=== PATIENT | male | born 1995 | race African-American/Black ===

== ENCOUNTER 2021-09-28 05:43 | Emergency (ER) | payer MEDICAID, SELFPAY ==
[2021-09-28 05:47] VITALS: BP 143/82; PULSE 56; RESP 16; TEMP 36.6; O2SAT 99
--- NOTE | 2021-09-28 05:55 | ED.GENADUL_ITS ---
Discharge Plan Disposition Patient Disposition: HOME Condition: Good Discharge Details Clinical Impression: Pain due to dental caries Primary Care Provider: Unknown,Unknown ED Provider: Porfirio Rodriguez Home Meds and New Rx's Prescriptions: New penicillin V potassium 500 mg tablet 500 mg PO QID 10 Days Qty: 40 0RF Discharge Instructions Instructions: Dental Caries (ED) Additional Instructions: the block we administered should help improve your pain. Please take 800 mg of ibuprofen every 6 hours and 1000 mg of Tylenol every 6 hours to help with the inflammation and pain. These are the maximum doses. Please take the antibiotic as directed to help with the infection in your tooth. Please contact the dentist for prompt follow-up and evaluation for tooth removal. If you notice any worsening of your symptoms, or any new symptoms such as difficulty swallowing, difficulty breathing, vomiting, diarrhea, fever, chills, shortness of breath, chest pain, numbness, weakness, or fainting , please return immediately to the emergency department for reevaluation. Please follow up with your primary care provider as soon as possible for reassessment and reevaluation. As always, it was a pleasure participating in your medical care today. Medical Decision Making This is a pleasant 26-year-old male who presents for left lower posterior dental pain. Patient has known dental caries in his wisdom teeth and is scheduled to get them removed in the next month. Unfortunately he has had increased pain over the last 24 to 48 hours. He has been taking Tylenol and Motrin without improvement. He denies difficulty swallowing or drinking. No trauma to the area. No fever or chills. No other complaints at this time. Physical exam demonstrates a dental carry in the left posterior inferior wisdom tooth. Patient consented for dental block. Dental block was performed. Patient will be given a small bottle of penicillin here with a prescription for home. Patient will follow-up closely with dentist. Recommend continued NSAIDs. I have extensively reviewed the treatment plan and discharge instructions with the patient. I have addressed all patient concerns at this time. The patient was made aware of what symptoms to monitor for that would warrant a return to the emergency department. Discussed the plan with the patient, they demonstrate verbal understanding and agreement with our assessment and plan at this time. The documentation in this chart was dictated using [email or web address] dictation software. Please excuse any dictation errors. HPI General Date/Time Provider Initiated Documentation: 09/28/21 05:44 . HPI Narrative: This is a pleasant 26-year-old male who presents for left lower posterior dental pain. Patient has known dental caries in his wisdom teeth and is scheduled to get them removed in the next month. Unfortunately he has had increased pain over the last 24 to 48 hours. He has been taking Tylenol and Motrin without improvement. He denies difficulty swallowing or drinking. No trauma to the area. No fever or chills. No other complaints at this time. Related Data Home Medications Medication Instructions Recorded Confirmed penicillin V potassium 500 mg 500 mg PO QID 10 days #40 tabs 09/28/21 tablet Previous Rx's Medication Instructions Recorded penicillin V potassium 500 mg 500 mg PO QID 10 days #40 tabs 09/28/21 tablet Allergies Allergy/AdvReac Type Severity Reaction Status Date / Time fluoxetine Allergy Severe Other (See Unverified 09/28/21 05:50 Comment) General Stated Complaint: DentalOral NIRAV: 5 Review of Systems All systems reviewed & are unremarkable except as noted in HPI and below PFSH All Active Problems Acute nephritis (Acute 09/03/15) Chronic low back pain (Chronic) DDD (degenerative disc disease) (Chronic) Pain due to dental caries (Acute) Social History Smoking/Tobacco Use Status: Current-Occasional Tobacco Type: cigarettes Smoking risk assessment performed?: Yes Alcohol Intake: never Drug use: Never Substance use type: does not use Do you feel safe at home: Yes Do you feel safe in your relationship?: Yes Exam Narrative Exam Narrative: 1.Const: Well-nourished, Well-developed, appearing stated age 2.Eyes: PERRL, no conjunctival injection, and symmetrical lids. 3.ENT: Atraumatic external nose and ears. Moist MM. Neck: Symmetric, trachea midline, No thyromegaly. Left lower posterior wisdom tooth demonstrates notable cavity. No evidence of periapical abscess. No swelling or edema. No evidence of Ludewig's angina. No signs of airway compromise. 4.CVS: +S1/S2, No murmurs or gallops. Peripheral pulses 2+ and equal in all extremities. Brisk capillary refill in all extremities. 5.RESP: Unlabored respiratory effort. Clear to auscultation bilaterally. No wheezes rales or rhonchi 6.GI: Soft, Nontender/Nondistended, No hepatosplenomegaly. No guarding or rebound. 7.MSK: Normocephalic/Atraumatic, Extremities w/o deformity or ttp No cyanosis or clubbing, Normal movement of all extremities 8.Skin: Warm, Dry. No rashes or lesions. 9.Neuro: regional trainer II-XII grossly intact. Sensation grossly intact, no focal neurologic deficits. 10.Psych: (AAO) x3. Appropriate mood and affect Course Vital Signs Vital signs: Vital Signs Temperature 36.6 C 09/28/21 05:47 Pulse 56 L 09/28/21 05:47 Respiratory Rate 16 09/28/21 05:47 Blood Pressure 143/82 H 09/28/21 05:47 Pulse Oximetry 99 09/28/21 05:47 Temperature 36.6 C 09/28/21 05:47 Temperature Source Oral 09/28/21 05:47 Pulse 56 L 09/28/21 05:47 Respiratory Rate 16 09/28/21 05:47 Respiratory Effort Non-Labored 09/28/21 05:52 Blood Pressure 143/82 H 09/28/21 05:47 Pulse Oximetry 99 09/28/21 05:47 Pain Level 9 09/28/21 05:47 Procedures Nerve Block Nerve Block 1: Time out performed: Yes Local Anesthetic: Bupivicaine 0.25% Amount of anesthesia used (mL): 5 Side: left Intraoral Nerve Block: inferior alveolar Procedure Successful: Yes Patient Tolerated Procedure: well Complications: none
[2021-09-28] MEDS: Penicillin V POTASSIUM 500 MG TAB, 4 TABS/BTL PO (06:00)
== END 2021-09-28 06:03 | disposition home or self-care (01) ==
PROVIDERS: Emergency Provider Student in an Organized Health Care Education/Training Program
DX: K08.89 Other specified disorders of teeth and supporting structures (principal); K02.9 Dental caries, unspecified
CPT/HCPCS: 64400

== ENCOUNTER 2022-02-03 12:23 | Emergency (ER) | payer MEDICAID, SELFPAY ==
[2022-02-03 12:30] VITALS: BP 154/76; PULSE 86; RESP 16; TEMP 37.2; O2SAT 97
--- NOTE | 2022-02-03 13:27 | ED.GENADUL_ITS ---
Discharge Plan Disposition Patient Disposition: HOME Condition: Stable Discharge Details Clinical Impression: Pain, dental Primary Care Provider: None,None ED Provider: Gee Mendoza Home Meds and New Rx's Prescriptions: New naproxen [Naprosyn] 500 mg tablet 500 mg PO BID Qty: 20 0RF amoxicillin 875 mg tablet 875 mg PO BID Qty: 20 0RF Discharge Instructions Instructions: Toothache (ED) Additional Instructions: Amoxicillin and Naprosyn as directed. Salt water gargles, swish and spit as tolerated. Cool and/or warm compresses every 2 hours for 20 minutes. Please watch for new or worsening symptoms and return to the ER for any concerns. Lastly, follow-up with your dentist as already scheduled on Tuesday Medical Decision Making This is a 26-year-old male, current smoker, reports right upper dental pain and facial swelling that began yesterday, no trauma. Patient reports he contacted his dentist who recommended going to the ER for antibiotics and pain control, he is scheduled to see his dentist on Tuesday. Clinically he appears well, nontoxic, afebrile, airway is patent, no trismus, managing secretions without difficulty. Will initiate naproxen and amoxicillin therapy. Standard discharge and return precautions were provided. Patient understands, is agreeable to this plan, and has no additional questions or concerns upon discharge. This documentation was generated using [employer] dictation system, please disregard any oddities of phrase or misspellings. Medical Records Medical records reviewed: Yes I reviewed the patient's medical records. HPI General Mode of arrival: ambulatory . Date/Time Provider Initiated Documentation: 02/03/22 13:06 . Limitations to Documentation: no limitations . Information obtained by: patient . History of Present Illness 26 year old M presents to the emergency department with the chief complaint of R upper dental pain, described as moderate, with intensity rated at 5. Quality is described as aching, and is localized to the face and mouth. Patient reports no radiation. Patient started experiencing this day(s) (1) and it has been constant. No relieving factors improve symptom(s), No exacerbating factors reported . Patient notes no other symptoms.. Patient did receive the following treatments prior to arrival, none Related Data Home Medications Medication Instructions Recorded Confirmed amoxicillin 875 mg tablet 875 mg PO BID #20 tabs 09/28/22 naproxen 500 mg tablet (Naprosyn) 500 mg PO BID #20 tabs 02/03/22 Previous Rx's Medication Instructions Recorded amoxicillin 875 mg tablet 875 mg PO BID #20 tabs 02/03/22 naproxen 500 mg tablet (Naprosyn) 500 mg PO BID #20 tabs 02/03/22 Allergies Allergy/AdvReac Type Severity Reaction Status Date / Time fluoxetine Allergy Severe Other (See Unverified 09/28/21 05:50 Comment) General Stated Complaint: DentalOral NIRAV: 4 Review of Systems Constitutional Constitutional: Denies fever(s) ENT Ears, Nose, Mouth, and Throat: Denies otalgia Cardiovascular Cardiovascular: Denies chest pain Integumentary/Breasts Skin/Breast: Denies erythema PFSH All Active Problems Acute nephritis (Acute 09/03/15) Chronic low back pain (Chronic) DDD (degenerative disc disease) (Chronic) Pain, dental (Acute) Social History Smoking/Tobacco Use Status: Current-Occasional Tobacco Type: cigarettes Smoking risk assessment performed?: Yes Alcohol Intake: never Drug use: Never Substance use type: does not use Do you feel safe at home: Yes Do you feel safe in your relationship?: Yes Exam Const General: cooperative, healthy appearing, comfortable and no acute distress Orientation: alert and awake HENMT Head: normal to inspection, normocephalic and atraumatic Ears: external ears normal, TM's normal bilaterally and EAC's normal General nose exam: external nose normal Face images: 1. Mild swelling and tenderness, no erythema, warmth, induration. Mouth: moist mucous membranes Teeth image: 1. Diffuse mild discomfort to palpation. There is no obvious swelling, discharge or pointing abscess. No trismus. Airway is patent. Throat: posterior oropharynx normal Eyes Conjunctivae: conjunctivae normal Neck Neck: normal visual inspection, full ROM, no meningeal signs, trachea midline and supple Resp Effort & Inspection: normal respiratory effort and able to speak in complete sentences Skin General skin exam: no rashes or lesions noted Neuro General: patient alert, patient awake, moves all extremities and no focal motor deficits Sensory Exam: no sensory deficits noted Psych Appearance: grossly normal Mental Status: mental status grossly normal Course Vital Signs Vital signs: Vital Signs Temperature 37.2 C 02/03/22 12:30 Pulse 86 02/03/22 12:30 Respiratory Rate 16 02/03/22 12:30 Blood Pressure 154/76 H 02/03/22 12:30 Pulse Oximetry 97 02/03/22 12:30 Temperature 37.2 C 02/03/22 12:30 Temperature Source Oral 02/03/22 12:30 Pulse 86 02/03/22 12:30 Respiratory Rate 16 02/03/22 12:30 Respiratory Effort Non-Labored 02/03/22 12:33 Blood Pressure 154/76 H 02/03/22 12:30 Blood Pressure Position Sitting 02/03/22 12:30 Pulse Oximetry 97 02/03/22 12:30 Oxygen Delivery Method Room Air 02/03/22 12:30 Oxygen Flow Rate 0 02/03/22 12:30 Pain Level 8 02/03/22 12:30
== END 2022-02-03 13:37 | disposition home or self-care (01) ==
PROVIDERS: Emergency Provider Physician Assistant
DX: K08.89 Other specified disorders of teeth and supporting structures (principal); F17.210 Nicotine dependence, cigarettes, uncomplicated; R22.0 Localized swelling, mass and lump, head
CPT/HCPCS: 99283; 99284

== ENCOUNTER 2022-06-12 23:00 | Emergency (ER) | payer MEDICAID, SELFPAY ==
[2022-06-12 23:13] VITALS: BP 138/79; PULSE 77; RESP 16; TEMP 37.2; O2SAT 95
--- NOTE | 2022-06-12 23:30 | DI.RAD_ITS ---
Exam(s) XR LUMBAR SPINE COMPLETE EXAM: XR LUMBAR SPINE COMPLETE CLINICAL HISTORY: midline L4 pain. TECHNIQUE: 2D digital imaging was performed of the lumbar spine. Five images were obtained. AP, la teral, right oblique, left oblique and L5-S1 spot views were obtained. COMPARISON: CR LUMBAR SPINE COMPLETE from 10/11/2010 FINDINGS: BONES: No fracture or destructive lesion. Vertebral bodies are unremarkable. No facet hypertrophy ambrosio ntified. DISKS: Intervertebral disc spaces are maintained. ALIGNMENT: There is straightening of the normal lordosis. No spondylolysis or spondylolisthesis. SOFT TISSUE: Normal. IMPRESSION: Unremarkable radiographs of the lumbar spine. DATA REPOSITORY: RADIATION DOSE DELIVERED:
--- NOTE | 2022-06-12 23:33 | ED.GENADUL_ITS ---
Discharge Plan Disposition Patient Disposition: Home Condition: Good Discharge Details Clinical Impression: Chronic low back pain Primary Care Provider: Maureen,Local ED Provider: Porfirio Rodriguez Home Meds and New Rx's Prescriptions: New cyclobenzaprine 10 mg tablet 10 mg PO TID Qty: 14 0RF lidocaine [Lidoderm] 5 % adhesive patch,medicated 1 patch Topical Q24H Qty: 15 0RF prednisone 50 mg tablet 50 mg PO DAILY Qty: 5 0RF No Action naproxen [Naprosyn] 500 mg tablet 500 mg PO BID Qty: 20 0RF Discharge Instructions Instructions: Low Back Strain (ED) Additional Instructions: At this time your signs and symptoms are clinically consistent with a back sprain. This can cause significant pain and take a fair bit of time to heal. I expect 1 to 2 months for potential resolution. In the meantime do not lift anything greater than 5 pounds for the next 2 weeks. Avoid any significant vigorous physical activity. Perform easy gentle regular activities at home without any significant bending or lifting. Please take the steroids as direct ed. You have been given a prescription for Lidoderm patch. If your insurance does not cover this you can get [id number] Lidoderm patches at 4% which are almost just as effective. Please take the Flexeril as directed but do not take it when driving or operating any vehicles or heavy machinery, swimming, taking long baths, or operating firearms. Please use a heating pad as often as possible on your back. Perform daily gentle stretches on your back. Please continue to take the Tylenol and Motrin. You can take 1000 mg of Tylenol every 6 hours and 600 mg of ibuprofen every 6 hours. If you notice any worsening of your symptoms, or any new symptoms such as vomiting, diarrhea, fever, chills, shortness of breath, chest pain, numbness or tingling in your groin or legs, weakness in your legs, loss of control for your bowels or bladder, or fainting , please return immediately to the emergency department for reevaluation. Please follow up with your primary care provider as soon as possible for reassessment and reevaluation. As always, it was a pleasure participating in your medical care today. Medical Decision Making 26-year-old male presents today for evaluation of back pain. Patient has a history of 2 herniated disc, he had an MRI 11 years ago which showed that. He has suffered from chronic back pain since then. About 1 week ago he noticed some achiness in his lower back, which is continued over the last week. He has been taking naproxen but this has not improved his pain. He denies any heavy lifting, trauma, falls or other complaints. Pain worsens with movement and bending. It is associated with intermittent tingling down his left lateral and posterior leg, but only when he is standing for extended periods of time. He normally works at [employer], but has not for the past week. Patient denies any saddle anesthesia, numbness or tingling in the groin, change in sensation when wiping. Patient denies any change in sensation during sexual intercourse, difficulty achieving or maintaining an erection or ejaculation, bowel or bladder incontinence, leakage, or retention. Patient denies any weakness in the lower extremities, atypical falls or imbalance. Physical exam demonstrates well-appearing male, patient does have mild midline tenderness at around L4. But he also has a notable left-sided paraspinal spasm. Signs and symptoms demonstrate no concerning symptomatology for cauda equina syndrome. No saddle anesthesia. Intact strength, good dorsiflexion of the great toe. No clinical history of bowel or bladder incontinence. I suspect this is worsening of his chronic herniated disks and lumbar go secondary to this with muscle spasm. Will give Toradol, steroids, NSAIDs and Lidoderm patch. Will monitor closely and reassess. 12:52 AM On reassessment patient is feeling much better. He continues to show no signs or symptoms concerning for cauda equina syndrome. X-ray negative for acute process. Patient stable for discharge. Medication sent to the patient's pharmacy. Symptoms consistent with muscle spasm of the back. I have extensively reviewed the treatment plan and discharge instructions with the patient. I have addressed all patient concerns at this time. The patient was made aware of what symptoms to monitor for that would warrant a return to the emergency department. Discussed the plan with the patient, they demonstrate verbal understanding and agreement with our assessment and plan at this time. The documentation in this chart was dictated using [employer] dictation software. Please excuse any dictation errors. FINDINGS: Bones/joints: Normal. No acute fracture. Normal alignment. Straightening of lordosis. Soft tissues: Unremarkable. IMPRESSION: 1. No acute fracture or subluxation. 2. Straightening of lordosis. Thank you for allowing us to participate in the care of your patient. Dictated and Authenticated by: Júnior Meadows DO 06/13/2022 12:44 AM Eastern Time ([place] & [place]) HPI General Date/Time Provider Initiated Documentation: 06/12/22 23:08 . HPI Narrative: 26-year-old male presents today for evaluation of back pain. Patient has a history of 2 herniated disc, he had an MRI 11 years ago which showed that. He has suffered from chronic back pain since then. About 1 week ago he noticed some achiness in his lower back, which is continued over the last week. He has been taking naproxen but this has not improved his pain. He denies any heavy lifting, trauma, falls or other complaints. Pain worsens with movement and bending. It is associated with intermittent tingling down his left lateral and posterior leg, but only when he is standing for extended periods of time. He normally works at [employer], but has not for the past week. Patient denies any saddle anesthesia, numbness or tingling in the groin, change in sensation when wiping. Patient denies any change in sensation during sexual intercourse, difficulty achieving or maintaining an erection or ejaculation, bowel or bladder incontinence, leakage, or retention. Patient denies any weakness in the lower extremities, atypical falls or imbalance. Related Data Home Medications Medication Instructions Recorded Confirmed naproxen 500 mg tablet (Naprosyn) 500 mg PO BID #20 tabs 02/03/22 06/12/22 cyclobenzaprine 10 mg tablet 10 mg PO TID #14 tabs 06/13/22 lidocaine 5 % topical patch 1 patch topical Q24H #15 ea 06/13/22 (Lidoderm) prednisone 50 mg tablet 50 mg PO DAILY #5 tabs 06/13/22 Previous Rx's Medication Instructions Recorded naproxen 500 mg tablet (Naprosyn) 500 mg PO BID #20 tabs 02/03/22 cyclobenzaprine 10 mg tablet 10 mg PO TID #14 tabs 06/13/22 lidocaine 5 % topical patch 1 patch topical Q24H #15 ea 06/13/22 (Lidoderm) prednisone 50 mg tablet 50 mg PO DAILY #5 tabs 06/13/22 Allergies Allergy/AdvReac Type Severity Reaction Status Date / Time fluoxetine Allergy Severe Other (See Unverified 06/12/22 23:20 Comment) General Stated Complaint: Nk/Back Pain NIRAV: 4 Review of Systems All systems reviewed & are unremarkable except as noted in HPI and below PFSH All Active Problems (Updated 06/13/22 @ 00:21 by Porfirio Rodriguez DO) Acute nephritis (Acute 09/03/15) Chronic low back pain (Chronic) DDD (degenerative disc disease) (Chronic) Social History Smoking/Tobacco Use Status: Current-Occasional Tobacco Type: cigarettes Smoking risk assessment performed?: Yes Alcohol Intake: never Drug use: Occasionally Substance use type: former substance user Do you feel safe at home: Yes Do you feel safe in your relationship?: Yes Exam Narrative Exam Narrative: 1.Const: Well-nourished, Well-developed, appearing stated age 2.Eyes: PERRL, no conjunctival injection, and symmetrical lids. 3.ENT: Atraumatic external nose and ears. Moist MM. Neck: Symmetric, trachea midline, No thyromegaly. 4.CVS: +S1/S2, No murmurs or gallops. Peripheral pulses 2+ and equal in all extremities. Brisk capillary refill in all extremities. 5.RESP: Unlabored respiratory effort. Clear to auscultation bilaterally. No wheezes rales or rhonchi 6.GI: Soft, Nontender/Nondistended, No hepatosplenomegaly. No guarding or rebound. 7.MSK: Normocephalic/Atraumatic, Extremities w/o deformity or ttp No cyanosis or clubbing, Normal movement of all extremities No midline tenderness to palpation over the CTS spine. Patient does have mild midline tenderness over L4. Mild to moderate left-sided paraspinal tenderness in that same region. Normal ROM in flexion, extension, side bend, and rotation. Patient has +5 out of 5 strength in the lower extremities in dorsiflexion and plantarflexion, knee flexion and extension, hip flexion and extension. Normal strength for dorsiflexion and plantar flexion of the great toe bilaterally. There is +2 over 2 dorsalis pedis pulses bilaterally. There is normal sensation to the skin with light touch at the foot, knee, and hip. Normal saddle sensation. Good sensation over the deep sural nerve area bilaterally. Rectal exam demonstrates good rectal tone and perirectal sensation reflexes are +2 over 4 in the patellar reflex bilaterally. +5 out of 5 strength in the medial, ulnar, radial nerve distribution bilaterally in the hands as well as intact light touch sensation to these dermatomes on the hands 8.Skin: Warm, Dry. No rashes or lesions. 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 Sensation grossly intact, no focal neurologic deficits. 10.Psych: (AAO) x3. Appropriate mood and affect Course Vital Signs Vital signs: Vital Signs Temperature 37.2 C 06/12/22 23:13 Pulse 77 06/12/22 23:13 Respiratory Rate 16 06/12/22 23:13 Blood Pressure 138/79 06/12/22 23:13 Pulse Oximetry 95 06/12/22 23:13 Temperature 37.2 C 06/12/22 23:13 Pulse 77 06/12/22 23:13 Respiratory Rate 16 06/12/22 23:13 Respiratory Effort 06/12/22 23:13 Blood Pressure 138/79 06/12/22 23:13 Blood Pressure Position Supine 06/12/22 23:13 Pulse Oximetry 95 06/12/22 23:13 Oxygen Delivery Method Room Air 06/12/22 23:13 Oxygen Flow Rate 0 06/12/22 23:13 Pain Level 8 06/12/22 23:13
[2022-06-12] MEDS: predniSONE 20 MG TAB 60 MG PO (23:40)
[2022-06-12] MEDS: Acetaminophen 500 MG TAB 1000 MG PO (23:40)
[2022-06-12] MEDS: Ketorolac 30 MG/ML VIAL IM (23:41)
[2022-06-13] MEDS: Lidocaine 5% Patch 1 PATCH TP (00:18)
--- NOTE | 2022-06-13 00:45 | DI.VRAD_ITS ---
PROCEDURE INFORMATION: Exam: XR Lumbosacral Spine Exam date and time: 06/13/2022 12:10 AM Age: 26 years old Clinical indication: Other: Midline l4 pain TECHNIQUE: Imaging protocol: Radiologic exam of the lumbosacral spine. Views: 4 or 5 views. COMPARISON: No relevant prior studies available. FINDINGS: Bones/joints: Normal. No acute fracture. Normal alignment. Straightening of lordosis. Soft tissues: Unremarkable. IMPRESSION: 1. No acute fracture or subluxation. 2. Straightening of lordosis. Dictated and Authenticated by: Júnior Meadows MD. Ordering:CORY Monroy MD
[2022-06-13] MEDS: Cyclobenzaprine 10 MG TAB, 3 TABS/BTL PO (00:52)
[2022-06-13 00:54] VITALS: BP 134/64; PULSE 64; RESP 18; O2SAT 94
[2022-06-13 01:00] VITALS: BP 134/64; PULSE 64; RESP 18; TEMP 37.2; O2SAT 94
== END 2022-06-13 00:59 | disposition home or self-care (01) ==
PROVIDERS: Emergency Provider Student in an Organized Health Care Education/Training Program
DX: G89.29 Other chronic pain (principal); M54.50 Low back pain, unspecified
CPT/HCPCS: 96372; 99284; 72110; J1885; J7512

== ENCOUNTER 2022-07-27 20:27 | Outpatient (REF) | payer MEDICAID, SELFPAY ==
[2022-07-27 21:03] LABS: ALT 44 U/L (16-63); AST 20 U/L (15-37); Albumin 4.3 g/dL (3.4-5.0); Alkaline Phosphatase 88 U/L (46-116); Anion Gap 7.4 mmol/L (3-11); BUN 11 mg/dL (7-18); Bilirubin, Total 0.3 mg/dL (0.2-1.0); CO2 27.6 mmol/L (21.0-32.0); CREATININE 1.1 mg/dL (0.70-1.30); Calcium 9.7 mg/dL (8.5-10.1); Chloride 104 mmol/L (98-107); Estimated GFR 96.14 (mL/min/1.73m2); Glucose 101 mg/dL (74-106); Potassium 4.4 mmol/L (3.5-5.1); Sodium 139 mmol/L (136-145); Total Protein 7.6 g/dL (6.4-8.2)
== END 2022-07-27 20:28 | disposition home or self-care (01) ==
LOC: LBN 20:27
PROVIDERS: Visit Provider Nurse Practitioner Family
DX: Z79.1 Long term (current) use of non-steroidal anti-inflammatories (NSAID) (principal); M54.59 Other low back pain
CPT/HCPCS: 80053

== ENCOUNTER 2022-11-11 15:46 | Outpatient (REF) | payer MEDICAID, SELFPAY ==
[2022-11-11 20:29] LABS: Calculated LDL 122 mg/dL (<100); Cholesterol 194 mg/dL (<200); HDL Cholesterol 64 mg/dL (40-60); Triglyceride 42 mg/dL (<150)
== END 2022-11-11 15:47 | disposition home or self-care (01) ==
LOC: NCHCN 15:46
PROVIDERS: Visit Provider Nurse Practitioner Family
DX: Z13.220 Encounter for screening for lipoid disorders (principal)
CPT/HCPCS: 80061